=== PATIENT | female | born 1985 | race Hispanic/Latino ===

== ENCOUNTER 2017-03-20 18:26 | Emergency (ER) | payer MEDICAID ==
[2017-03-20 18:31] VITALS: BMI 21.9
[2017-03-20 18:33] VITALS: RESP 18; TEMP 98.6; O2SAT 99
[2017-03-20] MEDS ORDERED: Morphine 2 mg/ml ISec IVP STA (19:12)
[2017-03-20] MEDS ORDERED: Sodium Chloride 0.9% 1,000 ML IV STA (19:12)
--- NOTE | 2017-03-20 19:16 | ED PDOC ---
Arrival/HPI - General Chief Complaint: GI Problem Time Seen by Provider: 03/20/17 18:59 Historian: Patient - History of Present Illness Narrative History of Present Illness (Text): 03/20/17 19:13 This 31 yo female presents to this ED c/o nausea, vomiting, and abdominal cramping x 1 days. Patient stated after eating cheese yesterday afternoon, she developed symptoms. She stated symptoms have worsen to days. Patient has been drinking plain water and seltzer water. Denies fever, or vomiting. Denies rectal bleeding, sob, cp, recent travel, sick contact, or abnormal gait. Time/Duration: Other (see hpi) Context: Home Past Medical History - Provider Review Nursing Documentation Reviewed: Yes - Infectious Disease Hx of Infectious Diseases: None - Past Medical History Past Medical History: No Previous - Gastrointestinal Hx Irritable Bowel: Yes - Psychiatric Hx Substance Use: No - Past Surgical History Past Surgical History: No Previous - Surgical History Hx Abdominal Aortic Aneurysm Repair: No - Anesthesia Hx Anesthesia: No Family/Social History - Physician Review Nursing Documentation Reviewed: Yes Family/Social History: Other (non-contributory) Smoking Status: Never Smoked Hx Alcohol Use: No Hx Substance Use: No Allergies/Home Meds Allergies/Adverse Reactions: Allergies No Known Allergies Allergy (Verified 06/30/16 13:10) Review of Systems - Review of Systems Constitutional: Normal. absent: Fatigue, Weight Change, Fevers, Night Sweats Eyes: Normal ENT: Normal Respiratory: Normal. absent: SOB, Cough Cardiovascular: Normal. absent: Chest Pain, Palpitations Gastrointestinal: Abdominal Pain, Diarrhea, Nausea. absent: Vomiting Genitourinary Female: Normal. absent: Dysuria, Frequency, Hematuria, Vaginal Bleeding, Vaginal Discharge Musculoskeletal: Normal Skin: Normal Neurological: Normal. absent: Headache, Dizziness, Focal Weakness, Gait Changes , Speech Changes, Facial Droop, Disequilibrium Endocrine: Normal Hemo/Lymphatic: Normal Psychiatric: Normal Physical Exam Vital Signs Temp Pulse Resp BP Pulse Ox 03/20/17 21:19 72 18 120/79 99 03/20/17 20:26 74 18 121/83 99 03/20/17 18:32 98.6 F 75 18 122/83 99 Temperature: Afebrile Blood Pressure: Normal Pulse: Regular Respiratory Rate: Normal Appearance: Positive for: Well-Appearing, Non-Toxic, Comfortable Pain Distress: None Mental Status: Positive for: Alert and Oriented X 3 - Systems Exam Head: Present: Atraumatic, Normocephalic Pupils: Present: PERRL Extroacular Muscles: Present: EOMI Conjunctiva: Present: Normal Mouth: Present: Moist Mucous Membranes Neck: Present: Normal Range of Motion Respiratory/Chest: Present: Clear to Auscultation, Good Air Exchange. No: Respiratory Distress, Accessory Muscle Use Cardiovascular: Present: Regular Rate and Rhythm, Normal S1, S2. No: Murmurs Abdomen: Present: Normal Bowel Sounds. No: Tenderness, Distention, Peritoneal Signs, Rebound, Guarding Back: Present: Normal Inspection Upper Extremity: Present: Normal Inspection, Normal ROM, NORMAL PULSES, Neurovascularly Intact, Capillary Refill < 2s. No: Cyanosis, Edema Lower Extremity: Present: Normal Inspection, NORMAL PULSES, Normal ROM, Neurovascularly Intact, Capillary Refill < 2 s. No: Edema Neurological: Present: GCS=15, CN II-XII Intact, Speech Normal, Motor Func Grossly Intact, Normal Sensory Function, Normal Cerebellar Funct, Gait Normal Skin: Present: Warm, Dry, Normal Color. No: Rashes Psychiatric: Present: Alert, Oriented x 3, Normal Insight, Normal Concentration Medical Decision Making ED Course and Treatment: 03/20/17 20:59 Re-evaluation. Patient feels better. Discussed results and plan with patient who expresses understanding. All questions answered and there is agreement with the plan to discharge home with instructions. Patient stable for discharge. Return if symptoms persist or worsen. Patient stated she feels better, her symptoms have improved, she wishes to be discharge home soon. Abdomen is soft, nt/nd. Patient has a normal gait. Re-evaluation Time: 20:59 Reassessment Condition: Re-examined, Improved - Lab Interpretations Lab Results: 03/20/17 19:23 03/20/17 19:23 Lab Results 03/20/17 19:23: Sodium 139, Potassium 4.1, Chloride 103, Carbon Dioxide 25, Anion Gap 15, BUN 7, Creatinine 0.6, Est GFR ( Amer) > 60, Est GFR (Non- Af Amer) > 60, Random Glucose 83, Calcium 9.0, Total Bilirubin 0.6, AST 29, ALT 28, Alkaline Phosphatase 50, Total Protein 7.5, Albumin 4.2, Globulin 3.3, Albumin/Globulin Ratio 1.3 03/20/17 19:23: WBC 5.5, RBC 4.30, Hgb 11.4 L, Hct 34.8 L, MCV 80.9, MCH 26.5, MCHC 32.8, RDW 15.9 H, Plt Count 222, MPV 9.5, Gran % 54.8, Lymph % (Auto) 35.0 , Perry % (Auto) 7.5 H, Eos % (Auto) 2.7, Baso % (Auto) 0.0, Gran # 3.01, Lymph # 1.9, Perry # 0.4, Eos # 0.2, Baso # 0.00 I have reviewed the lab results: Yes Interpretation: No clinic. lab abnormalty - Medication Orders Current Medication Orders: Discontinued Medications Dicyclomine HCl (Bentyl) 10 mg PO STAT STA Stop: 03/20/17 19:14 Last Admin: 03/20/17 19:30 Dose: 10 mg Sodium Chloride (Sodium Chloride 0.9%) 1,000 mls @ 999 mls/hr IV .Q1H1M STA Stop: 03/20/17 20:12 Last Admin: 03/20/17 19:30 Dose: 999 mls/hr Morphine Sulfate (Morphine) 2 mg IVP STAT STA Stop: 03/20/17 19:13 Last Admin: 03/20/17 19:30 Dose: 2 mg Re-Assess: BRAULIO Pain Assessment Document 03/20/17 20:30 JOL (Rec: 03/21/17 02:49 JOL [id number]) Pain Reassessment Is this a pain reassessment? Yes Sleep Is patient sleeping during reassessment? No Presence of Pain Presence of Pain No Ondansetron HCl (Zofran Inj) 4 mg IVP STAT STA Stop: 03/20/17 19:13 Last Admin: 03/20/17 19:30 Dose: 4 mg Disposition/Present on Arrival - Present on Arrival Any Indicators Present on Arrival: No History of DVT/PE: No History of Uncontrolled Diabetes: No Urinary Catheter: No History of Decub. Ulcer: No History Surgical Site Infection Following: None - Disposition Have Diagnosis and Disposition been Completed?: Yes Diagnosis: Nonspecific abdominal pain, Nausea & vomiting, Diarrhea Disposition: HOME/ ROUTINE Disposition Time: 21:00 Patient Plan: Discharge Condition: GOOD Discharge Instructions (ExitCare): Acute Nausea and Vomiting (ED), Abdominal Pain (ED) Additional Instructions: Call private doctor for follow up visit in 1-2 days. Drink Pedialyte, and eat al lot of soups. Also consider rice, saltine cracker, potato, past. Avoid fatty meals, spicy food, dairy products. Return to emergency if symptoms worsen. Prescriptions: Dicyclomine [Dicyclomine HCl] 10 mg PO QID PRN #20 cap PRN Reason: Gi Distress Ondansetron ODT [Zofran ODT] 4 mg PO Q4H PRN #20 odt PRN Reason: Nausea/Vomiting Referrals: [facility], [Non-Staff] - Follow up with primary Forms: [facility] (Y[place]i), WORK NOTE
[2017-03-20 19:32] LABS: EOS # 0.2 (0.0-0.7); EOS % 2.7 % (1.5-5.0); GRAN # 3.01 (1.4-6.5); GRAN % 54.8 % (50.0-68.0); HEMATOCRIT 34.8 % (36.0-48.0); LYMPH # 1.9 (1.2-3.4); MEAN CELL VOLUME 80.9 fl (80.0-105.0); MEAN CORPUSCULAR HEMOGLOBIN 26.5 pg (25.0-35.0); MEAN CORPUSCULAR HGB CONC 32.8 g/dl (31.0-37.0); MEAN PLATELET VOLUME 9.5 fl (7.0-11.0); MONO # 0.4 (0.1-0.6); MONO % 7.5 % (1.0-6.0); RED CELL DISTRIBUTION WIDTH 15.9 % (11.5-14.5); WHITE BLOOD COUNT 5.5 10^3/ul (4.5-11.0)
[2017-03-20 19:42] LABS: ALB/GLOB RATIO 1.3 (1.1-1.8); ALKALINE PHOSPHATASE 50 U/L (38-133); ALT/SGPT 28 U/L (7-56); AST/SGOT 29 U/L (15-39); BILIRUBIN,TOTAL 0.6 mg/dL (0.2-1.3); BLOOD UREA NITROGEN 7 mg/dL (7-21); CARBON DIOXIDE 25 mmol/L (21-33); CHLORIDE 103 mmol/L (98-107); GFR AFRICAN-AMERICAN > 60; GLUCOSE,RANDOM 83 mg/dL (70-110); POTASSIUM 4.1 mmol/L (3.6-5.0); SODIUM 139 mmol/L (132-148); TOTAL PROTEIN 7.5 g/dL (5.8-8.3)
[2017-03-21 02:49] VITALS: BP 120/79; PULSE 72
== END 2017-03-20 21:20 | disposition home or self-care (01) ==
LOC: ED 18:26
DX: R11.2 Nausea with vomiting, unspecified (principal); R19.7 Diarrhea, unspecified; R10.9 Unspecified abdominal pain
CPT/HCPCS: 80053; 85025; 96361; 96374; 96375; 99284; J2270; J2405; J7040